=== PATIENT | male | born 1940 | race Caucasian/White ===

== ENCOUNTER 2016-08-23 14:26 | Emergency (ER) | payer OTHER ==
[2016-08-23 14:44] VITALS: BP 140/91; PULSE 83; TEMP 98; BMI 27.4
--- NOTE | 2016-08-23 15:16 | PDOC ---
History of Present Illness - General Chief Complaint: Injury Stated Complaint: FALL Time Seen by Provider: 08/23/16 14:45 History Source: Patient Exam Limitations: No Limitations - History of Present Illness Initial Comments: 08/23/16 15:30 76-year-old male presents the ED with complaints of status post mechanical fall. Patient states was walking on uneven ground when he twisted his right ankle causing him to land on his right side striking the right side of his face. Patient denies LOC and states immediately got up with the assistance of his family member who helped break his fall. Patient states is on no blood thinners and denies previous injury to the affected area. Patient states difficult to walk secondary to right ankle pain. Occurred: reports: just prior to arrival Severity: reports: moderate Pain Location: reports: face, lower extremity Method of Injury: Yes: fall Modifying Factors: improves with: None Loss of Consciousness: no loss of consciousness Associated Symptoms (Fall): trouble walking Past History - Travel Traveled outside of the country in the last 30 days: No Close contact w/someone who was outside of country & ill: No - Past Medical History Allergies/Adverse Reactions: Allergies Allergy/AdvReac Type Severity Reaction Status Date / Time No Known Allergies Allergy Verified 08/23/16 14:43 Home Medications: Ambulatory Orders NK [No Known Home Medication] 08/23/16 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) Other medical history: ca remission since 2011 - Surgical History Abdominal Surgery: Yes (colon resection) Appendectomy: Yes - Psycho/Social/Smoking Cessation Hx Anxiety: No Suicidal Ideation: No Smoking History: Never smoked Have you smoked in the past 12 months: No Information on smoking cessation initiated: No Hx Alcohol Use: No Drug/Substance Use Hx: No Substance Use Type: None Patient Lives Alone: No Review of Systems - Review of Systems Able to Perform ROS?: Yes Constitutional: No: Symptoms Reported HEENTM: No: Symptoms Reported Respiratory: No: Symptoms reported Cardiac (ROS): No: Symptoms Reported ABD/GI: No: Symptoms Reported : No: Symptoms Reported Musculoskeletal: Yes: Joint Pain (right ankle) Integumentary: Yes: Bruising (ight ankle), Lumps (right cheek) Neurological: No: Symptoms reported Endocrine: No: Symptoms Reported Hematologic/Lymphatic: No: Symptoms Reported *Physical Exam - Vital Signs Last Vital Signs Temp Pulse Resp BP Pulse Ox 98.0 F 83 18 140/91 100 08/23/16 14:39 08/23/16 14:39 08/23/16 14:39 08/23/16 14:39 08/23/16 14:39 - Physical Exam General Appearance: Yes: Nourished, Appropriately Dressed. No: Apparent Distress HEENT: positive: EOMI, MARIANA, Pharynx Normal (full range of motion of mandible) Neck: positive: Supple. negative: Tender, Decreased range of motion Respiratory/Chest: positive: Lungs Clear, Normal Breath Sounds. negative: Chest Tender, Respiratory Distress, Accessory Muscle Use Cardiovascular: positive: Regular Rhythm, Regular Rate. negative: Murmur Gastrointestinal/Abdominal: positive: Soft. negative: Tenderness Musculoskeletal: negative: Vertebral Tenderness Extremity: positive: Normal Capillary Refill, Erythema (to lateral aspect of right orbital bone), Other (on exam incidentally noted left fifth digit paronychia). negative: Normal Range of Motion (unable to rotate, flex or extend the right ankle), Pedal Edema Integumentary: positive: Ecchymosis (to right malleolus) Neurologic: positive: Normal Mood/Affect Procedures - Incision and Drainage I&D Site: Left: Other Betadine cleansed: No Blade Size: 11 Attempts: 1 ED Treatment Course - RADIOLOGY Radiology Studies Ordered: Category Date Time Status CERVICAL SPINE CT W/O CONTR [CT] Stat CT Scan 08/23/16 14:[address] W/O CONTRAST [CT] Stat CT Scan 08/23/16 14:59 Ordered ANKLE-RIGHT [RAD] Stat Radiology 08/23/16 14:59 Ordered LEG TIB/FIB-RIGHT [RAD] Stat Radiology 08/23/16 14:59 Ordered Medical Decision Making - Medical Decision Making 08/23/16 15:45 Patient status post mechanical for now complaining of inability to walk, right ankle swelling, and swelling to the right ankle. Patient on exam had no crepitus or deformity but had noted diffuse edema ecchymosis and tenderness to the right malleolar area. patient also had an nontender erythema to the lateral aspect of right orbital bone. Patient concerning for right ankle fracture and facial fracture. Patient ordered for cervical CT due to mechanism of injury him a facial CT, right ankle and right tib-fib 2 view the distal aspect of the lower leg. Patient with noted right fifth digit paronychia which was drained using an 11 blade without difficulty 08/23/16 17:02 X-ray shows a distal fibular fracture without displacement. Facial and cervical CT negative. Patient placed in Aircast and follow-up of Dr. Cohen. *DC/Admit/Observation/Transfer Diagnosis at time of Disposition: Fracture of right tibia Qualifiers: Encounter type: initial encounter Tibia location: distal Fracture morphology: unspecified fracture morphology - Discharge Dispostion Disposition: HOME Condition at time of disposition: Good - Referrals Referrals: Rubio Cohen MD [Staff Physician] - - Patient Instructions Printed Discharge Instructions: DI for Shinbone Fracture Additional Instructions: Please elevate your leg as much as possible and apply ice as much as you can tolerate for the next 3 days. Please take Tylenol for discomfort and please follow-up with referred orthopedist.
== END 2016-08-23 17:13 | disposition home or self-care (01) ==
LOC: JERFT 14:26
PROC: 0H9MXZZ Drainage of Right Foot Skin, External Approach (ICD-10-PCS; principal; 2016-08-23)
PROC: 2W3QX1Z Immobilization of Right Lower Leg using Splint (ICD-10-PCS; 2016-08-23)
DX: S82.831A Other fracture of upper and lower end of right fibula, initial encounter for closed fracture (principal); W01.198A Fall on same level from slipping, tripping and stumbling with subsequent striking against other object, initial encounter; Y93.01 Activity, walking, marching and hiking; Y92.89 Other specified places as the place of occurrence of the external cause; L03.031 Cellulitis of right toe; Z85.038 Personal history of other malignant neoplasm of large intestine; Z85.118 Personal history of other malignant neoplasm of bronchus and lung
CPT/HCPCS: 10060; 29515; 70486-TC; 72125-TC; 73590-TC-RT; 73610-TC-RT; 99281-25